=== PATIENT | male | born 1990 | race Caucasian/White ===

== ENCOUNTER 2025-04-02 19:10 | Emergency (ER) | payer BC, SELFPAY ==
[2025-04-02 19:13] VITALS: BP 128/95; PULSE 98; RESP 16; TEMP 36.9; O2SAT 100
[2025-04-02 19:15] VITALS: BP 128/95; PULSE 98; RESP 16; TEMP 36.9; O2SAT 100
--- NOTE | 2025-04-02 19:27 | W.ED.GENAD ---
Discharge Plan Disposition Patient Disposition: Home Condition: Stable Discharge Details Clinical Impression: Pain, dental, Dental filling status Primary Care Provider: Renee,Local ED Provider: Sierra Jang Home Meds and New Rx's Prescriptions: New amoxicillin-pot clavulanate 875-125 mg tablet 1 tab PO Q12H Qty: 20 0RF Discharge Instructions Instructions: Dental Pain (DC) Additional Instructions: You are seen in the emergency department today for evaluation of dental pain after a filling fell out. In our department a full physical examination performed, and had dental wax applied over the exposed root to minimize air contact. I sent a prescription for just in case antibiotics to be used if you have a delay in accessing dental care, develop fever or swelling, etc. If you start these antibiotics you need to take all of them until they are gone, even if you start to feel better. Please use therapeutic dosing of Tylenol (acetaminophen) & Advil (ibuprofen) in an alternating fashion as follows: Take 1000mg of Tylenol every 6 hours without missing doses- that is 4 times per day. Fci in between the Tylenol doses, take 600mg of Advil also on a 6 hour schedule, that is also 4 times per day. With this strategy, you will be taking something for fever/pain as often as every 3 hours. The daily maximum dosing of Tylenol is 4000mg, and the daily maximum dosing of Advil is 2400mg. Please note that some common cold medications & prescription pain medications may contain acetaminophen and you need to read OTC drug labels and factor that in to maximum daily doses. You can continue to use your Orajel as directed on the package, or oil of clove. Please follow-up with your primary care provider in the next few days to discuss this visit and any symptoms that change, worsen, or persist. Thank you for allowing us to be part of your care. Discharge Data Discharge Date/Time-TO BE ENTERED AT DEPARTURE: 04/02/25 19:58 HPI General Mode of arrival: ambulatory. Date/Time Provider Initiated Documentation: 04/02/25 19:15. Limitations to Documentation: no limitations. Information obtained by: patient and old records reviewed. HPI Narrative: This is a 34-year-old male patient without significant past medical history presenting for dental pain after filling fell out. The patient is up here for correctional training, states the filling fell out today and he has been having significant pain since then. He has been using Orajel, Tylenol and ibuprofen without improvement. Prior to this event the patient was in his normal state of health. He did not sustain trauma, has not had fevers or chills, has been able to eat and drink typically for him. The patient has a dentist back in [place] where he resides. Related Data Home Medications ?Medication ?Instructions ?Recorded ?Confirmed amoxicillin 875 mg-potassium 1 tab PO Q12H #20 tabs 04/02/25 clavulanate 125 mg tablet Previous Rx's ?Medication ?Instructions ?Recorded amoxicillin 875 mg-potassium 1 tab PO Q12H #20 tabs 04/02/25 clavulanate 125 mg tablet Allergies Allergy/AdvReac Type Severity Reaction Status Date / Time Penicillins Allergy Mild Other (See Verified 04/02/25 19:15 Comment) General Stated Complaint: DentalOral CHAZ: 4 Exam Narrative Exam Narrative: Gen: Awake and alert, in no apparent distress HEENT: Non-icteric sclera, PERRL, EOMs full. No midface swelling. The patient has evidence of dental carry disease, with a missing filling and exposed root of tooth #30. Floor of the mouth is soft, no parotid swelling, no periapical abscess Neck: Supple, full range of motion without meningismus, no palpable lymphadenopathy Lungs: No apparent respiratory distress, normal respiratory effort. CV: Appears well perfused Abdomen: Non-distended MSK: Moves 4 extremities without apparent limitation in ROM Skin: Visualized skin without rashes, cyanosis. Neuro: Normal Gait, no obvious focal deficits or facial asymmetry. Speaks in full, clear sentences. Psych: Appropriate for situation. Course Vital Signs Vital signs: Vital Signs Temperature 36.9 C 04/02/25 19:13 Pulse 98 H 04/02/25 19:13 Respiratory Rate 16 04/02/25 19:13 Blood Pressure 128/95 H 04/02/25 19:13 Pulse Oximetry 100 04/02/25 19:13 Temperature 36.9 C 04/02/25 19:15 Pulse 98 H 04/02/25 19:15 Respiratory Rate 16 04/02/25 19:15 Blood Pressure 128/95 H 04/02/25 19:15 Pulse Oximetry 100 04/02/25 19:15 Pain Level 9 04/02/25 19:15 Medical Decision Making This is a 34-year-old male patient presented for evaluation after a filling fell out with increased dental pain. Differential includes but is not limited to exposed dental roots due to loss of filling, certainly considered early dental infection, but no evidence of dental abscess or periapical abscess at this time. The patient is systemically well and have a low concern for deep space head or neck infection such as Nam's angina, retropharyngeal abscess, peritonsillar abscess. I placed dental wax over the exposed root with good effect on the patient's pain. I counseled him on Tylenol and ibuprofen and provided him with a short course of oxycodone for breakthrough nighttime pain. I provided the patient with a [id number] course of Augmentin and counseled him to start this if he notices swelling in his face, fever or chills, or is concerned for infection otherwise. At this time, the patient has had a full medical evaluation and is safe for discharge to home. They are hemodynamically stable, ambulatory, and tolerating PO. They are understanding of the follow-up plan and return precautions. They left our facility without incident. Sierra Jang MD [facility] All Active Problems (Updated 04/02/25 @ 19:28 by Sierra Jang MD) Dental filling status (Acute) Pain, dental (Acute) Social History Smoking/Tobacco Use Status: Current every day Tobacco Type: cigars Per week: 14 Smoking risk assessment performed?: Yes Alcohol Intake: current Alcohol Intake frequency: a few times a month Alcohol type: hard liquor Drug use: Never Substance use type: does not use
== END 2025-04-02 19:58 | disposition home or self-care (01) ==
LOC: ER 19:41
PROVIDERS: Emergency Provider Emergency Medicine
DX: R68.84 Jaw pain (principal); K08.89 Other specified disorders of teeth and supporting structures; Z98.811 Dental restoration status
CPT/HCPCS: 99283 ×2